=== PATIENT | male | born 1950 | race Two or more races ===

== ENCOUNTER 2018-11-24 14:53 | Emergency (ER) | payer OTHER ==
[~2018-11-24] VITALS: Ht 152.4 cm; Wt 63.5 kg
[~2018-11-24 14:53] MED LIST: MICARDIS40 MG; MICARDIS40 MG PO; ULTRACET PO
== END 2018-11-24 15:36 | disposition home or self-care (01) ==
LOC: ER 14:53
DX: M54.89 Other dorsalgia (principal)

== ENCOUNTER 2018-12-07 14:27 | Emergency (ER) | payer OTHER ==
[~2018-12-07] VITALS: Ht 162.6 cm; Wt 63.5 kg
[2018-12-07] MEDS ORDERED: ULTRAM50 MG PO ×3 (14:37→16:57)
[2018-12-07] MEDS ORDERED: MICARDIS40 MG PO (16:55)
[2018-12-07] MEDS ORDERED: MICARDIS80 MG PO (16:56)
== END 2018-12-07 17:26 | disposition home or self-care (01) ==
LOC: ER 14:27
DX: G89.29 Other chronic pain (principal); M54.5 Low back pain; K12.0 Recurrent oral aphthae; G43.809 Other migraine, not intractable, without status migrainosus

== ENCOUNTER 2018-12-20 10:07 | Emergency (ER) | payer OTHER ==
[~2018-12-20] VITALS: Ht 162.6 cm; Wt 63.5 kg
[~2018-12-20 10:07] MED LIST changes: +MICARDIS80 MG PO; +ULTRAM50 MG PO
== END 2018-12-20 12:17 | disposition home or self-care (01) ==
LOC: ER 10:07
DX: K08.89 Other specified disorders of teeth and supporting structures (principal); I16.0 Hypertensive urgency; I10 Essential (primary) hypertension

== ENCOUNTER → 2018-12-22 | Emergency (ER) | payer OTHER ==
[~2018-12-22] VITALS: Ht 162.6 cm; Wt 63.5 kg
== END | disposition left against medical advice (07) ==
LOC: ER 14:45
DX: M54.5 Low back pain (principal)

== ENCOUNTER 2019-01-02 09:58 | Emergency (ER) | payer OTHER ==
[~2019-01-02] VITALS: Ht 162.6 cm; Wt 63.5 kg
== END 2019-01-02 11:15 | disposition home or self-care (01) ==
LOC: ER 09:58
DX: G89.29 Other chronic pain (principal); M54.5 Low back pain

== ENCOUNTER 2019-01-11 13:47 | Emergency (ER) | payer OTHER ==
[~2019-01-11] VITALS: Ht 162.6 cm; Wt 63.5 kg
[2019-01-11] MEDS ORDERED: TRAMADOL HCL50 MG PO (16:27)
[2019-01-11] MEDS ORDERED: NEURONTIN300 MG PO (16:27)
[2019-01-11] MEDS ORDERED: CYCLOBENZAPRINE10 MG PO (16:27)
[2019-01-11] MEDS ORDERED: DICLOFENAC POTA50 MG PO (16:27)
[2019-01-11] MEDS ORDERED: MICARDIS HCT 81 EACH PO (16:29)
== END 2019-01-11 16:37 | disposition home or self-care (01) ==
LOC: ER 13:47
DX: M54.5 Low back pain (principal)

== ENCOUNTER → 2019-01-22 | Emergency (ER) | payer OTHER ==
[~2019-01-22] VITALS: Ht 162.6 cm; Wt 63.5 kg
[~2019-01-22] MED LIST changes: +CYCLOBENZAPRINE10 MG PO; +DICLOFENAC POTA50 MG PO; +MICARDIS HCT 81 EACH PO; +NEURONTIN300 MG PO; +TRAMADOL HCL50 MG PO
== END | disposition left against medical advice (07) ==
LOC: ER 12:41
DX: Z53.20 Procedure and treatment not carried out because of patient's decision for unspecified reasons (principal)

== ENCOUNTER 2019-05-18 06:35 | Emergency (ER) | payer OTHER ==
[~2019-05-18] VITALS: Ht 162.6 cm; Wt 68.0 kg
[2019-05-18] MEDS ORDERED: [UNRECOGNIZED DRUG - OTHER] (06:55)
[2019-05-18] MEDS ORDERED: FIORICET (06:55)
--- NOTE | 2019-05-18 06:55 | NUR ---
PTE SE RECIBE POR VOMITTING CON NATALY Y DOLOR DE ESTOMAGO PIERRE REFIERE PTE.
--- NOTE | 2019-05-18 08:17 | NUR ---
BAJO MEDIDAS ASEPTICAS AL PACIENTE SE LE CANALIZA Y SE LE GUERLINE MUESTRAS DE NATALY. ANGELLA ORDEN MEDICA SE LE EILEEN SALINE LOCK Y SE LE ADMINSITRA IVF CON PEPCID IV. ANGELLA ORDEN MEDICA SE LE ADMINISTRA PHENERGAN EN GLUEO DERECHO SUPERIOR BAJO MEDIDAS ASEPTICAS. PACIENTE SE MANTIENE BAJO OBSERVACION PARA CAMBIOS SIGNIFICATIVOS.
--- NOTE | 2019-05-18 15:48 | NUR ---
SE RECIBE PTE ALERTA Y ORIENTADO EN LAS 3 ESFERAS EN CAMA CON BARANDAS ELEVADAS POR SEGURIDAD. BUEN PATRON RESPIRATORIO. RECIBIENDO IV'S 0.45NACL BAJANDO A 150ML/HR AREA DE VENOPUNCION ROSE MARIE DE EDEMA Y ERITEMA Y PRIMERA UNIDAD DE PRBC. PENDIENTE DOS UNIDADES DE PRBC Y CONSULTA CON DRA.SANDRA TELLEZ. SE MANTIENE EN OBSERVACION POR CAMBIOS EN CONDICION MEDICA.
[2019-05-19] MEDS ORDERED: IBUPROFEN600 MG PO (06:40)
[2019-05-19] MEDS ORDERED: LOSARTAN-HCTZ1 EAC1 PO (06:42)
[2019-05-19] MEDS ORDERED: LEVO-T25 MCG PO (06:43)
[2019-05-19] MEDS ORDERED: BUTALBIT-ACETA1 EACH (06:46)
[2019-05-19] MEDS ORDERED: BIOSUPP473 ML (06:51)
== END 2019-05-18 17:41 | disposition left against medical advice (07) ==
LOC: ER 06:35 → SEC-K 17:48 → ER 17:48 → ICU-2 17:48 → SEC-K 19:00 → ICU-2 19:00
DX: D50.0 Iron deficiency anemia secondary to blood loss (chronic) (principal); K52.89 Other specified noninfective gastroenteritis and colitis; E86.0 Dehydration; I16.0 Hypertensive urgency; I10 Essential (primary) hypertension
CPT/HCPCS: 36415; 36430; 86904; 86922; 96365; 96372 ×2; 96375; 99284; J1100; J2550; J3490; J7050

== ENCOUNTER 2019-06-02 19:12 | Emergency (ER) | payer OTHER ==
[~2019-06-02] VITALS: Ht 162.6 cm; Wt 63.5 kg
[~2019-06-02 19:12] MED LIST changes: +BIOSUPP473 ML; +BUTALBIT-ACETA1 EACH; +FIORICET; +IBUPROFEN600 MG PO; +LEVO-T25 MCG PO; +LOSARTAN-HCTZ1 EAC1 PO; +[UNRECOGNIZED DRUG - OTHER]
== END 2019-06-02 19:45 | disposition home or self-care (01) ==
LOC: ER 19:12
DX: M54.5 Low back pain (principal)

== ENCOUNTER 2019-06-06 10:43 | Emergency (ER) | payer OTHER ==
[~2019-06-06] VITALS: Ht 162.6 cm; Wt 63.5 kg
== END 2019-06-06 11:34 | disposition home or self-care (01) ==
LOC: ER 10:43
DX: M54.5 Low back pain (principal)

== ENCOUNTER 2019-07-04 10:24 | Emergency (ER) | payer OTHER ==
[~2019-07-04] VITALS: Ht 162.6 cm; Wt 63.5 kg
== END 2019-07-04 15:25 | disposition home or self-care (01) ==
LOC: ER 10:24
DX: M54.89 Other dorsalgia (principal)

== ENCOUNTER 2020-01-31 08:07 | Emergency (ER) | payer OTHER ==
[~2020-01-31] VITALS: Ht 162.6 cm; Wt 63.5 kg
[2020-01-31] MEDS ORDERED: MICARDIS80 MG PO (08:21)
[2020-01-31] MEDS ORDERED: MUPIROCIN15 GM TOP (09:08)
== END 2020-01-31 09:17 | disposition home or self-care (01) ==
LOC: ER 08:07
DX: L02.611 Cutaneous abscess of right foot (principal); M79.671 Pain in right foot

== ENCOUNTER 2020-02-13 10:35 | Emergency (ER) | payer OTHER ==
[~2020-02-13] VITALS: Ht 162.6 cm; Wt 63.5 kg
[~2020-02-13 10:35] MED LIST changes: +MUPIROCIN15 GM TOP
[2020-02-14] MEDS ORDERED: MICARDIS80 MG PO (08:29)
[2020-02-14] MEDS ORDERED: ULTRAM50 MG PO (08:30)
[2020-02-14] MEDS ORDERED: SKELAXIN800 MG PO (11:09)
[2020-02-14] MEDS ORDERED: DICLOFENAC SODI50 MG PO (11:11)
[2020-02-14] MEDS ORDERED: ULTRACET PO (11:11)
== END 2020-02-14 11:42 | disposition home or self-care (01) ==
LOC: ER 10:35
DX: M54.5 Low back pain (principal)

== ENCOUNTER 2020-02-13 16:44 | Emergency (ER) | payer OTHER ==
[~2020-02-13] VITALS: Ht 162.6 cm; Wt 63.5 kg
[2020-02-14] MEDS ORDERED: MICARDIS80 MG PO (08:29)
[2020-02-14] MEDS ORDERED: ULTRAM50 MG PO (08:30)
[2020-02-14] MEDS ORDERED: SKELAXIN800 MG PO (11:09)
[2020-02-14] MEDS ORDERED: DICLOFENAC SODI50 MG PO (11:11)
[2020-02-14] MEDS ORDERED: ULTRACET PO (11:11)
== END 2020-02-14 11:42 | disposition home or self-care (01) ==
LOC: ER 16:44
DX: M54.89 Other dorsalgia (principal); R41.0 Disorientation, unspecified

== ENCOUNTER 2020-02-19 11:29 | Emergency (ER) | payer OTHER ==
[~2020-02-19] VITALS: Ht 162.6 cm; Wt 63.5 kg
[~2020-02-19 11:29] MED LIST changes: +DICLOFENAC SODI50 MG PO; +SKELAXIN800 MG PO
== END 2020-02-19 12:52 | disposition home or self-care (01) ==
LOC: ER 11:29
DX: M54.5 Low back pain (principal)

== ENCOUNTER 2020-02-24 13:22 | Emergency (ER) | payer OTHER ==
[~2020-02-24] VITALS: Ht 162.6 cm; Wt 63.5 kg
== END 2020-02-24 16:42 | disposition home or self-care (01) ==
LOC: ER 13:22
DX: M51.37 Other intervertebral disc degeneration, lumbosacral region (principal); M54.5 Low back pain; S22.080S Wedge compression fracture of T11-T12 vertebra, sequela; M41.85 Other forms of scoliosis, thoracolumbar region

== ENCOUNTER 2020-02-26 11:06 | Emergency (ER) | payer OTHER ==
[~2020-02-26] VITALS: Ht 165.1 cm; Wt 72.6 kg
== END 2020-02-26 12:45 | disposition home or self-care (01) ==
LOC: ER 11:06
DX: M54.5 Low back pain (principal)

== ENCOUNTER 2020-04-09 08:14 | Emergency (ER) | payer OTHER ==
[~2020-04-09] VITALS: Ht 162.6 cm; Wt 59.0 kg
[2020-04-09] MEDS ORDERED: DICLOFENAC POTA50 MG PO (09:59)
[2020-04-09] MEDS ORDERED: NORFLEX100MG PO (09:59)
[2020-04-09] MEDS ORDERED: ULTRACET PO (09:59)
== END 2020-04-09 10:23 | disposition home or self-care (01) ==
LOC: ER 08:14
DX: G89.29 Other chronic pain (principal); M54.5 Low back pain

== ENCOUNTER 2020-04-16 10:06 | Emergency (ER) | payer OTHER ==
[~2020-04-16] VITALS: Ht 162.6 cm; Wt 54.4 kg
[~2020-04-16 10:06] MED LIST changes: +NORFLEX100MG PO
== END 2020-04-16 10:54 | disposition home or self-care (01) ==
LOC: ER 10:06
DX: M54.5 Low back pain (principal)

== ENCOUNTER 2020-04-24 10:21 | Emergency (ER) | payer OTHER ==
[~2020-04-24] VITALS: Ht 162.6 cm; Wt 54.4 kg
[2020-04-24] MEDS ORDERED: ULTRACET PO (14:58)
[2020-04-24] MEDS ORDERED: PEPCID AC20 MG PO (14:58)
[2020-05-07] MEDS ORDERED: ULTRAM50 MG PO (09:36)
[2020-06-06] MEDS ORDERED: NAPROXEN500 MG PO (14:13)
[2020-06-06] MEDS ORDERED: OMEPRAZOLE20 MG PO (14:13)
[2020-06-06] MEDS ORDERED: PEPCID AC20 MG PO (14:13)
== END 2020-04-24 15:29 | disposition home or self-care (01) ==
LOC: ER 10:21
DX: S00.81XA Abrasion of other part of head, initial encounter (principal); R19.5 Other fecal abnormalities; R55 Syncope and collapse; M54.5 Low back pain; W18.09XA Striking against other object with subsequent fall, initial encounter; Y93.89 Activity, other specified; Y92.89 Other specified places as the place of occurrence of the external cause; Y99.8 Other external cause status

== ENCOUNTER 2020-05-02 13:24 | Emergency (ER) | payer OTHER ==
[~2020-05-02] VITALS: Ht 162.6 cm; Wt 59.0 kg
[~2020-05-02 13:24] MED LIST changes: +PEPCID AC20 MG PO
[2020-05-02] MEDS ORDERED: KETO10TA2 PO (15:29)
[2020-05-02] MEDS ORDERED: NORFLEX100MG PO (15:29)
[2020-05-02] MEDS ORDERED: ULTRAM50 MG PO (15:33)
[2020-05-07] MEDS ORDERED: ULTRAM50 MG PO (09:36)
[2020-06-06] MEDS ORDERED: PEPCID AC20 MG PO (14:13)
[2020-06-06] MEDS ORDERED: OMEPRAZOLE20 MG PO (14:13)
[2020-06-06] MEDS ORDERED: NAPROXEN500 MG PO (14:13)
== END 2020-05-02 15:44 | disposition home or self-care (01) ==
LOC: ER 13:24
DX: M54.5 Low back pain (principal)

== ENCOUNTER 2020-05-06 09:23 | Emergency (ER) | payer OTHER ==
[~2020-05-06] VITALS: Ht 162.6 cm; Wt 54.4 kg
[~2020-05-06 09:23] MED LIST changes: +KETO10TA2 PO
[2020-05-06] MEDS ORDERED: LEVO-T25 MCG PO (09:30)
[2020-05-07] MEDS ORDERED: ULTRAM50 MG PO (09:36)
== END 2020-05-06 11:10 | disposition home or self-care (01) ==
LOC: ER 09:23
DX: M54.5 Low back pain (principal)

== ENCOUNTER → 2020-05-07 | Emergency (ER) | payer OTHER ==
[~2020-05-07] VITALS: Ht 162.6 cm; Wt 54.4 kg
[~2020-05-07] MED LIST changes: +GRALISE600 MG; +GRALISE600 MG PO; +NAPROXEN500 MG PO; +NEURONTIN600 M1 PO; +OMEPRAZOLE20 MG PO; +PEPCID AC20 MG
== END | disposition left against medical advice (07) ==
LOC: ER 09:20
DX: Z53.20 Procedure and treatment not carried out because of patient's decision for unspecified reasons (principal)

== ENCOUNTER 2020-05-10 07:07 | Emergency (ER) | payer OTHER ==
[~2020-05-10] VITALS: Ht 162.6 cm; Wt 54.4 kg
[~2020-05-10 07:07] MED LIST changes: -GRALISE600 MG; -GRALISE600 MG PO; -NAPROXEN500 MG PO; -NEURONTIN600 M1 PO; -OMEPRAZOLE20 MG PO; -PEPCID AC20 MG
[2020-05-10] MEDS ORDERED: ULTRAM50 MG PO (08:22)
[2020-06-06] MEDS ORDERED: PEPCID AC20 MG PO (14:13)
[2020-06-06] MEDS ORDERED: NAPROXEN500 MG PO (14:13)
[2020-06-06] MEDS ORDERED: OMEPRAZOLE20 MG PO (14:13)
== END 2020-05-10 08:48 | disposition home or self-care (01) ==
LOC: ER 07:07
DX: M54.5 Low back pain (principal)

== ENCOUNTER 2020-05-13 07:39 | Emergency (ER) | payer OTHER ==
[~2020-05-13] VITALS: Ht 165.1 cm; Wt 63.5 kg
[2020-05-13] MEDS ORDERED: GRALISE600 MG (07:56)
[2020-06-06] MEDS ORDERED: NAPROXEN500 MG PO (14:13)
[2020-06-06] MEDS ORDERED: OMEPRAZOLE20 MG PO (14:13)
[2020-06-06] MEDS ORDERED: PEPCID AC20 MG PO (14:13)
== END 2020-05-13 10:07 | disposition home or self-care (01) ==
LOC: ER 07:39
DX: G89.29 Other chronic pain (principal); M54.5 Low back pain

== ENCOUNTER → 2020-05-14 | Emergency (ER) | payer OTHER ==
[~2020-05-14] VITALS: Ht 162.6 cm; Wt 54.4 kg
[~2020-05-14] MED LIST changes: +GRALISE600 MG; +PEPCID AC20 MG
== END | disposition left against medical advice (07) ==
LOC: ER 13:18
DX: Z53.20 Procedure and treatment not carried out because of patient's decision for unspecified reasons (principal)

== ENCOUNTER 2020-05-20 13:29 | Emergency (ER) | payer OTHER ==
[~2020-05-20] VITALS: Ht 162.6 cm; Wt 54.4 kg
[~2020-05-20 13:29] MED LIST changes: -PEPCID AC20 MG
[2020-06-06] MEDS ORDERED: OMEPRAZOLE20 MG PO (14:13)
[2020-06-06] MEDS ORDERED: NAPROXEN500 MG PO (14:13)
[2020-06-06] MEDS ORDERED: PEPCID AC20 MG PO (14:13)
== END 2020-05-20 15:38 | disposition home or self-care (01) ==
LOC: ER 13:29
DX: G89.29 Other chronic pain (principal); M54.5 Low back pain

== ENCOUNTER 2020-05-24 13:48 | Emergency (ER) | payer OTHER ==
[~2020-05-24] VITALS: Ht 154.9 cm; Wt 61.7 kg
[2020-05-24] MEDS ORDERED: NORFLEX100MG PO (14:11)
[2020-05-24] MEDS ORDERED: KETO10TA2 PO (14:11)
[2020-06-06] MEDS ORDERED: NAPROXEN500 MG PO (14:13)
[2020-06-06] MEDS ORDERED: PEPCID AC20 MG PO (14:13)
[2020-06-06] MEDS ORDERED: OMEPRAZOLE20 MG PO (14:13)
== END 2020-05-24 14:27 | disposition home or self-care (01) ==
LOC: ER 13:48
DX: M54.5 Low back pain (principal)

== ENCOUNTER 2020-05-26 08:05 | Emergency (ER) | payer OTHER ==
[~2020-05-26] VITALS: Ht 162.6 cm; Wt 54.4 kg
[2020-05-27] MEDS ORDERED: PEPCID AC20 MG (11:27)
[2020-06-06] MEDS ORDERED: OMEPRAZOLE20 MG PO (14:13)
[2020-06-06] MEDS ORDERED: PEPCID AC20 MG PO (14:13)
[2020-06-06] MEDS ORDERED: NAPROXEN500 MG PO (14:13)
== END 2020-05-26 11:05 | disposition home or self-care (01) ==
LOC: ER 08:05
DX: K29.60 Other gastritis without bleeding (principal)

== ENCOUNTER 2020-05-27 10:55 | Emergency (ER) | payer OTHER ==
[~2020-05-27] VITALS: Ht 162.6 cm; Wt 54.4 kg
[2020-05-27] MEDS ORDERED: PEPCID AC20 MG (11:27)
[2020-06-06] MEDS ORDERED: OMEPRAZOLE20 MG PO (14:13)
[2020-06-06] MEDS ORDERED: PEPCID AC20 MG PO (14:13)
[2020-06-06] MEDS ORDERED: NAPROXEN500 MG PO (14:13)
== END 2020-05-27 13:39 | disposition home or self-care (01) ==
LOC: ER 10:55
DX: M62.830 Muscle spasm of back (principal)

== ENCOUNTER 2020-06-02 15:14 | Emergency (ER) | payer OTHER ==
[~2020-06-02] VITALS: Ht 157.5 cm; Wt 61.2 kg
[~2020-06-02 15:14] MED LIST changes: +PEPCID AC20 MG
[2020-06-02] MEDS ORDERED: NEURONTIN600 M1 PO (15:43)
[2020-06-06] MEDS ORDERED: NAPROXEN500 MG PO (14:13)
[2020-06-06] MEDS ORDERED: OMEPRAZOLE20 MG PO (14:13)
[2020-06-06] MEDS ORDERED: PEPCID AC20 MG PO (14:13)
== END 2020-06-02 17:22 | disposition home or self-care (01) ==
LOC: ER 15:14
DX: M54.5 Low back pain (principal)

== ENCOUNTER 2020-06-04 08:11 | Emergency (ER) | payer OTHER ==
[~2020-06-04] VITALS: Ht 157.5 cm; Wt 54.4 kg
[~2020-06-04 08:11] MED LIST changes: +NEURONTIN600 M1 PO
[2020-06-04] MEDS ORDERED: GRALISE600 MG PO (08:54)
[2020-06-04] MEDS ORDERED: KETO10TA2 PO (08:54)
[2020-06-06] MEDS ORDERED: PEPCID AC20 MG PO (14:13)
[2020-06-06] MEDS ORDERED: NAPROXEN500 MG PO (14:13)
[2020-06-06] MEDS ORDERED: OMEPRAZOLE20 MG PO (14:13)
== END 2020-06-04 09:00 | disposition home or self-care (01) ==
LOC: ER 08:11
DX: G89.29 Other chronic pain (principal); M54.89 Other dorsalgia

== ENCOUNTER → 2020-06-06 | Emergency (ER) | payer OTHER ==
[~2020-06-06] VITALS: Ht 160 cm; Wt 63.5 kg
[~2020-06-06] MED LIST changes: +GRALISE600 MG PO; +NAPROXEN500 MG PO; +OMEPRAZOLE20 MG PO
== END | disposition home or self-care (01) ==
LOC: ER 13:42
DX: M54.89 Other dorsalgia (principal)

== ENCOUNTER 2020-06-24 09:19 | Emergency (ER) | payer OTHER ==
[~2020-06-24] VITALS: Ht 162.6 cm; Wt 64.4 kg
== END 2020-06-24 10:35 | disposition home or self-care (01) ==
LOC: ER 09:19
DX: M62.838 Other muscle spasm (principal); M54.5 Low back pain

== ENCOUNTER 2020-07-06 08:37 | Emergency (ER) | payer OTHER ==
[~2020-07-06] VITALS: Ht 165.1 cm; Wt 63.5 kg
[2020-07-06] MEDS ORDERED: DICLOFENAC POTA50 MG PO (10:11)
== END 2020-07-06 10:17 | disposition home or self-care (01) ==
LOC: ER 08:37
DX: M54.5 Low back pain (principal)

== ENCOUNTER 2020-07-08 09:09 | Emergency (ER) | payer OTHER ==
[~2020-07-08] VITALS: Ht 162.6 cm; Wt 65.3 kg
== END 2020-07-08 10:16 | disposition home or self-care (01) ==
LOC: ER 09:09
DX: M54.5 Low back pain (principal)

== ENCOUNTER → 2020-07-16 | Emergency (ER) | payer OTHER ==
[~2020-07-16] VITALS: Ht 162.6 cm; Wt 63.5 kg
== END | disposition left against medical advice (07) ==
LOC: ER 11:31
DX: M54.89 Other dorsalgia (principal)

== ENCOUNTER 2020-07-23 09:24 | Emergency (ER) | payer OTHER ==
[~2020-07-23] VITALS: Ht 162.6 cm; Wt 63.5 kg
[2020-07-23] MEDS ORDERED: PEPCID AC20 MG PO (11:48)
== END 2020-07-23 17:09 | disposition home or self-care (01) ==
LOC: ER 09:24
DX: M54.5 Low back pain (principal); M79.604 Pain in right leg

== ENCOUNTER → 2020-08-08 | Emergency (ER) | payer OTHER ==
[~2020-08-08] VITALS: Ht 162.6 cm; Wt 63.5 kg
[~2020-08-08] MED LIST changes: +LACTULOSE10 GM/151 PO; +ZANAFLEX4 M1 PO
== END | disposition left against medical advice (07) ==
LOC: ER 13:35
DX: Z53.20 Procedure and treatment not carried out because of patient's decision for unspecified reasons (principal)

== ENCOUNTER 2020-08-09 13:21 | Emergency (ER) | payer OTHER ==
[~2020-08-09] VITALS: Ht 170.2 cm; Wt 63.5 kg
[~2020-08-09 13:21] MED LIST changes: -LACTULOSE10 GM/151 PO; -ZANAFLEX4 M1 PO
[2020-08-09] MEDS ORDERED: KETO10TA2 PO (14:47)
[2020-08-09] MEDS ORDERED: ZANAFLEX4 M1 PO (14:47)
== END 2020-08-09 15:42 | disposition home or self-care (01) ==
LOC: ER 13:21
DX: M54.5 Low back pain (principal)

== ENCOUNTER 2020-08-17 09:03 | Emergency (ER) | payer OTHER ==
[~2020-08-17] VITALS: Ht 162.6 cm; Wt 65.3 kg
[~2020-08-17 09:03] MED LIST changes: +ZANAFLEX4 M1 PO
[2020-08-17] MEDS ORDERED: LACTULOSE10 GM/151 PO (10:51)
[2020-08-17] MEDS ORDERED: DICLOFENAC POTA50 MG PO (10:51)
== END 2020-08-17 11:00 | disposition home or self-care (01) ==
LOC: ER 09:03
DX: K59.09 Other constipation (principal); M54.5 Low back pain

== ENCOUNTER 2020-08-21 12:58 | Emergency (ER) | payer OTHER ==
[~2020-08-21] VITALS: Ht 162.6 cm; Wt 65.3 kg
[~2020-08-21 12:58] MED LIST changes: +LACTULOSE10 GM/151 PO
[2020-08-21] MEDS ORDERED: KETO10TA2 PO (13:11)
== END 2020-08-21 13:41 | disposition home or self-care (01) ==
LOC: ER 12:58
DX: S39.012A Strain of muscle, fascia and tendon of lower back, initial encounter (principal); X50.9XXA Other and unspecified overexertion or strenuous movements or postures, initial encounter; Y92.89 Other specified places as the place of occurrence of the external cause; Y99.8 Other external cause status

== ENCOUNTER 2020-08-24 14:04 | Emergency (ER) | payer OTHER ==
[~2020-08-24] VITALS: Ht 162.6 cm; Wt 66.7 kg
== END 2020-08-24 16:38 | disposition home or self-care (01) ==
LOC: ER 14:04
DX: M54.5 Low back pain (principal)

== ENCOUNTER 2020-08-28 07:53 | Emergency (ER) | payer OTHER ==
[~2020-08-28] VITALS: Ht 162.6 cm; Wt 65.3 kg
== END 2020-08-28 09:07 | disposition home or self-care (01) ==
LOC: ER 07:53
DX: G89.29 Other chronic pain (principal); M54.5 Low back pain

== ENCOUNTER 2020-09-09 08:56 | Emergency (ER) | payer OTHER ==
[~2020-09-09] VITALS: Ht 162.6 cm; Wt 63.5 kg
[2020-09-09] MEDS ORDERED: LOSARTAN POTAS100 MG PO (09:13)
[2020-09-09] MEDS ORDERED: LEVOTHYROXINE25 MC1 PO (09:14)
[2020-09-09] MEDS ORDERED: PRILOSEC OTC20 MG PO (09:14)
[2020-09-09] MEDS ORDERED: DICLOFENAC POTA50 MG PO (09:14)
[2020-09-09] MEDS ORDERED: CLONIDINE HCL0.1 MG PO (09:14)
== END 2020-09-09 11:02 | disposition home or self-care (01) ==
LOC: ER 08:56
DX: M54.5 Low back pain (principal)

== ENCOUNTER 2020-09-11 10:42 | Emergency (ER) | payer OTHER ==
[~2020-09-11] VITALS: Ht 162.6 cm; Wt 79.4 kg
[~2020-09-11 10:42] MED LIST changes: +CLONIDINE HCL0.1 MG PO; +LEVOTHYROXINE25 MC1 PO; +LOSARTAN POTAS100 MG PO; +PRILOSEC OTC20 MG PO
[2020-09-11] MEDS ORDERED: CELEBREX200MG PO (14:31)
[2020-09-11] MEDS ORDERED: CYCLOBENZAPRINE10 MG PO (14:31)
== END 2020-09-11 14:38 | disposition home or self-care (01) ==
LOC: ER 10:42
DX: M62.830 Muscle spasm of back (principal); M54.2 Cervicalgia; M62.838 Other muscle spasm

== ENCOUNTER 2020-09-15 10:52 | Emergency (ER) | payer OTHER ==
[~2020-09-15] VITALS: Ht 160 cm; Wt 64.4 kg
[~2020-09-15 10:52] MED LIST changes: +CELEBREX200MG PO
== END 2020-09-15 11:32 | disposition home or self-care (01) ==
LOC: ER 10:52
DX: M54.5 Low back pain (principal)

== ENCOUNTER → 2020-09-16 | Emergency (ER) | payer OTHER ==
[~2020-09-16] VITALS: Ht 162.6 cm; Wt 63.5 kg
== END | disposition left against medical advice (07) ==
LOC: ER 10:11
DX: M54.5 Low back pain (principal)

== ENCOUNTER 2020-09-23 10:45 | Emergency (ER) | payer OTHER ==
[~2020-09-23] VITALS: Ht 162.6 cm; Wt 63.5 kg
== END 2020-09-23 13:51 | disposition home or self-care (01) ==
LOC: ER 10:45
DX: G89.29 Other chronic pain (principal); M54.5 Low back pain

== ENCOUNTER 2020-09-30 08:54 | Emergency (ER) | payer OTHER ==
[~2020-09-30] VITALS: Ht 162.6 cm; Wt 68.0 kg
[2020-09-30] MEDS ORDERED: OMEPRAZOLE20 MG PO (09:00)
== END 2020-09-30 10:36 | disposition home or self-care (01) ==
LOC: ER 08:54
DX: M54.5 Low back pain (principal)

== ENCOUNTER 2020-10-08 09:36 | Emergency (ER) | payer OTHER ==
[~2020-10-08] VITALS: Ht 162.6 cm; Wt 63.5 kg
[2020-10-08] MEDS ORDERED: CELEBREX200MG PO (10:46)
[2020-10-08] MEDS ORDERED: MAALOX MAXIMUM355 ML PO (10:46)
[2020-10-08] MEDS ORDERED: PEPCID AC20 MG PO (10:46)
== END 2020-10-08 10:55 | disposition home or self-care (01) ==
LOC: ER 09:36
DX: K29.60 Other gastritis without bleeding (principal); M54.5 Low back pain

== ENCOUNTER → 2020-10-12 | Emergency (ER) | payer OTHER ==
[~2020-10-12] VITALS: Ht 162.6 cm; Wt 63.5 kg
[~2020-10-12] MED LIST changes: +MAALOX MAXIMUM355 ML PO
== END | disposition left against medical advice (07) ==
LOC: ER 13:15
DX: Z53.20 Procedure and treatment not carried out because of patient's decision for unspecified reasons (principal)

== ENCOUNTER 2020-10-21 09:18 | Emergency (ER) | payer OTHER ==
[~2020-10-21] VITALS: Ht 162.6 cm; Wt 63.5 kg
== END 2020-10-21 12:12 | disposition home or self-care (01) ==
LOC: ER 09:18
DX: M54.5 Low back pain (principal)

== ENCOUNTER → 2020-11-11 | Emergency (ER) | payer OTHER ==
[~2020-11-11] VITALS: Ht 162.6 cm; Wt 63.5 kg
[~2020-11-11] MED LIST changes: +MICARDIS20 MG
== END | disposition home or self-care (01) ==
LOC: ER 10:19
DX: M54.5 Low back pain (principal)

== ENCOUNTER 2020-12-03 09:42 | Emergency (ER) | payer OTHER ==
[~2020-12-03] VITALS: Ht 162.6 cm; Wt 63.5 kg
[~2020-12-03 09:42] MED LIST changes: -MICARDIS20 MG
[2020-12-03] MEDS ORDERED: MICARDIS20 MG (09:51)
== END 2020-12-03 10:27 | disposition home or self-care (01) ==
LOC: ER 09:42
DX: G89.21 Chronic pain due to trauma (principal); M54.5 Low back pain

== ENCOUNTER 2020-12-10 09:52 | Emergency (ER) | payer OTHER ==
[~2020-12-10] VITALS: Ht 162.6 cm; Wt 63.5 kg
[~2020-12-10 09:52] MED LIST changes: +MICARDIS20 MG
[2020-12-10] MEDS ORDERED: OMEPRAZOLE40 MG PO (10:10)
== END 2020-12-10 10:42 | disposition home or self-care (01) ==
LOC: ER 09:52
DX: G89.11 Acute pain due to trauma (principal); M54.5 Low back pain

== ENCOUNTER → 2021-01-24 | Emergency (ER) | payer OTHER ==
[~2021-01-24] VITALS: Ht 162.6 cm; Wt 63.5 kg
[~2021-01-24] MED LIST changes: +OMEPRAZOLE40 MG PO
== END | disposition left against medical advice (07) ==
LOC: ER 13:24
DX: Z53.20 Procedure and treatment not carried out because of patient's decision for unspecified reasons (principal)

== ENCOUNTER 2021-02-11 10:40 | Emergency (ER) | payer OTHER ==
[~2021-02-11] VITALS: Ht 162.6 cm; Wt 63.5 kg
== END 2021-02-11 12:18 | disposition home or self-care (01) ==
LOC: ER 10:40
DX: M54.5 Low back pain (principal)

== ENCOUNTER → 2021-03-04 | Emergency (ER) | payer OTHER ==
[~2021-03-04] VITALS: Ht 162.6 cm; Wt 63.5 kg
== END | disposition home or self-care (01) ==
LOC: ER 10:04
DX: G89.21 Chronic pain due to trauma (principal); M54.5 Low back pain; F41.8 Other specified anxiety disorders

== ENCOUNTER 2022-01-26 10:38 | Emergency (ER) | payer OTHER ==
[~2022-01-26] VITALS: Ht 162.6 cm; Wt 54.4 kg
[2022-01-26] MEDS ORDERED: TYLENOL ARTHRI650 MG PO (11:34)
[2022-01-26] MEDS ORDERED: NORFLEX100MG PO (11:34)
== END 2022-01-26 11:40 | disposition home or self-care (01) ==
LOC: ER 10:38
DX: M54.40 Lumbago with sciatica, unspecified side (principal)

== ENCOUNTER 2022-03-06 10:50 | Emergency (ER) | payer OTHER ==
[~2022-03-06] VITALS: Ht 162.6 cm; Wt 4.5 kg
[~2022-03-06 10:50] MED LIST changes: +TYLENOL ARTHRI650 MG PO
[2022-03-06] MEDS ORDERED: PRILOSEC OTC20 MG PO (11:36)
[2022-03-06] MEDS ORDERED: DULCOLAX STOOL100 M1 PO (11:36)
== END 2022-03-06 12:08 | disposition home or self-care (01) ==
LOC: ER 10:50
DX: S39.012A Strain of muscle, fascia and tendon of lower back, initial encounter (principal)

== ENCOUNTER 2022-06-03 10:34 | Emergency (ER) | payer OTHER ==
[~2022-06-03] VITALS: Ht 162.6 cm; Wt 5.4 kg
[~2022-06-03 10:34] MED LIST changes: +DULCOLAX STOOL100 M1 PO
== END 2022-06-03 11:56 | disposition home or self-care (01) ==
LOC: ER 10:34
DX: M51.36 Other intervertebral disc degeneration, lumbar region (principal); M54.50 Low back pain, unspecified

== ENCOUNTER 2022-08-16 10:53 | Emergency (ER) | payer OTHER ==
[~2022-08-16] VITALS: Ht 160 cm; Wt 63.5 kg
== END 2022-08-16 11:41 | disposition home or self-care (01) ==
LOC: ER 10:53
DX: M54.59 Other low back pain (principal); M51.36 Other intervertebral disc degeneration, lumbar region

== ENCOUNTER 2022-08-28 08:50 | Emergency (ER) | payer OTHER ==
[~2022-08-28] VITALS: Ht 170.2 cm; Wt 54.4 kg
== END 2022-08-28 10:02 | disposition home or self-care (01) ==
LOC: ER 08:50
DX: M51.34 Other intervertebral disc degeneration, thoracic region (principal); G89.4 Chronic pain syndrome; M51.27 Other intervertebral disc displacement, lumbosacral region; M51.36 Other intervertebral disc degeneration, lumbar region

== ENCOUNTER 2022-09-05 10:20 | Emergency (ER) | payer OTHER ==
[~2022-09-05] VITALS: Ht 162.6 cm; Wt 54.4 kg
[2022-09-05] MEDS ORDERED: MICARDIS40 MG PO (10:45)
[2022-09-05] MEDS ORDERED: ULTRAM50 MG PO (11:32)
== END 2022-09-05 11:37 | disposition home or self-care (01) ==
LOC: ER 10:20
DX: M54.50 Low back pain, unspecified (principal); I10 Essential (primary) hypertension

== ENCOUNTER 2022-09-11 10:54 | Emergency (ER) | payer OTHER ==
[~2022-09-11] VITALS: Ht 165.1 cm; Wt 61.2 kg
[2022-09-11] MEDS ORDERED: ULTRAM50 MG PO (12:45)
== END 2022-09-11 12:49 | disposition home or self-care (01) ==
LOC: ER 10:54
DX: M54.50 Low back pain, unspecified (principal)

== ENCOUNTER → 2022-09-17 | Emergency (ER) | payer OTHER ==
[~2022-09-17] VITALS: Ht 165.1 cm; Wt 54.4 kg
== END | disposition left against medical advice (07) ==
LOC: ER 11:21
DX: K52.9 Noninfective gastroenteritis and colitis, unspecified (principal); D64.9 Anemia, unspecified